=== PATIENT | female | born 1960 | race Caucasian/White ===

== ENCOUNTER 2016-07-20 18:07 | Emergency (ER) | payer MEDICARE ==
[2016-07-20 20:56] LABS: BASOPHIL 0.9 % (0-2); EOSINOPHIL 3.2 % (0-5); HGB 14.4 g/dl (12.5-16.0); MCH 32.4 pg (25.0-31.0); MCHC 34.3 g/dL (32.0-36.0); MCV 94.6 fL (78.0-100.0); MONOCYTE 6.5 % (0-12); NEUTROPHIL 51.4 % (41-80); PLT 198 K/uL (150-400); RBC 4.44 M/uL (4.20-5.40); RDW 13.3 % (11.5-14.0); WBC 5.7 K/uL (4.0-10.5)
[2016-07-20 21:06] LABS: INR 0.97 (0.9-1.2); PROTHROMBIN TIME 12.5 SECONDS (11.7-14.0)
[2016-07-20 21:18] LABS: CKMB 1.17 ng/mL (0.97-4.94)
[2016-07-20 21:19] LABS: BILIRUBIN - TOTAL 0.8 mg/dL (0.1-1.0); CREATININE 0.9 mg/dL (0.5-1.0); GLOBULIN (CALCULATION) 2.1 g/dL (2.2-4.2); POTASSIUM 4.5 mmol/L (3.5-5.1); TOTAL PROTEIN 6.1 g/dL (6.4-8.3)
== END 2016-07-20 22:45 | disposition home or self-care (01) ==
LOC: FER 18:07
PROVIDERS: Emergency Medicine
DX: M94.0 Chondrocostal junction syndrome [Tietze] (principal); K21.9 Gastro-esophageal reflux disease without esophagitis; F03.90 Unspecified dementia, unspecified severity, without behavioral disturbance, psychotic disturbance, mood disturbance, and anxiety; Z88.1 Allergy status to other antibiotic agents; Z88.8 Allergy status to other drugs, medicaments and biological substances
CPT/HCPCS: 36415; 71020; 80053; 82550; 82553; 83880; 84484; 85025; 85610; 85730; 93005